=== PATIENT | female | born 1965 | race Caucasian/White ===

== ENCOUNTER 2018-07-21 11:41 | Outpatient (CLI) | payer BC ==
--- NOTE | 2018-07-21 22:23 | MMO ---
Bilateral MAMMO Bilat Screen [facility]. CLINICAL HISTORY: Patient is 53 years old and is seen for screening. The patient has no family history of breast cancer. The patient has a history of lymphoma at age 49. VIEWS: The views performed were: bilateral craniocaudal with tomosynthesis and bilateral mediolateral oblique with tomosynthesis. FILMS COMPARED: The present examination has been compared to prior imaging studies performed at [facility] on 05/10/2008, 04/22/2010, 04/21/2011 and 12/09/2012. MAMMOGRAM FINDINGS: There are scattered fibroglandular densities. There are no suspicious masses, suspicious calcifications, or new areas of architectural distortion. IMPRESSION: THERE IS NO MAMMOGRAPHIC EVIDENCE OF MALIGNANCY. A ROUTINE FOLLOW-UP MAMMOGRAM IN 1 YEAR IS RECOMMENDED. THE RESULTS OF THIS EXAM WERE SENT TO THE PATIENT. ACR BI-RADS Category 1 - Negative MAMMOGRAPHY NOTE: 1. A negative mammogram report should not delay a biopsy if a dominant of clinically suspicious mass is present. 2. Approximately 10% to 15% of breast cancers are not detected by mammography. 3. Adenosis and dense breasts may obscure an underlying neoplasm.
== END 2018-07-21 11:42 | disposition home or self-care (01) ==
LOC: BICMAMMO 11:41
PROVIDERS: ATTEND Obstetrics & Gynecology
DX: Z12.31 Encounter for screening mammogram for malignant neoplasm of breast (principal); Z85.72 Personal history of non-Hodgkin lymphomas
CPT/HCPCS: 77063; 77067

== ENCOUNTER 2019-01-25 07:39 | Day surgery (SDC) | payer BC ==
[2019-01-24 15:05] VITALS: BMI 24.7
[2019-01-25] MEDS ORDERED: Midazolam HCl 2 mg/2 ml Vial ONE (09:15)
[2019-01-25] MEDS ORDERED: Fentanyl 100 MCG/2 ML VIAL ONE (09:15)
[2019-01-25] MEDS ORDERED: PROPOFOL 40 ML ONE (09:15)
[2019-01-25] MEDS ORDERED: Bupivacaine 0.25% HCL 30 ML VIAL ONE (09:18)
[2019-01-25] MEDS ORDERED: Lidocaine 2% w/Epinephrine 1:200K 20 ML VIAL ONE (09:24)
--- NOTE | 2019-01-25 10:39 | RAD ---
PORTABLE CHEST ONE VIEW: 01/25/2019 10:05 a.m. HISTORY: Mediport placement. FINDINGS: There is a right internal jugular Port-A-Cath with the tip in the projection of the SVC. Heart size i s normal. Lungs are expanded without lobar consolidation, pneumothoraces or pleural effusions. POS: [facility]
[2019-01-25] MEDS ORDERED: HYDROcodone/Acetaminophen 5/325 mg Tablet ONE (10:44)
[2019-01-25] MEDS ORDERED: Sodium Chloride 0.9% 100 ML ONE (10:44)
[2019-01-25] MEDS ORDERED: Piperacillin/Tazobactam 3.375 GM VIAL ONE (10:44)
--- NOTE | 2019-01-25 11:17 | OP ---
DATE OF PROCEDURE: 01/25/2019 PREOPERATIVE DIAGNOSES: 1. Rheumatoid arthritis. 2. Venous insufficiency. POSTOPERATIVE DIAGNOSES: 1. Rheumatoid arthritis. 2. Venous insufficiency. PROCEDURE PERFORMED: Tunnelled central line with subcutaneous port (MediPort). ANESTHESIA: TIVA, local. ESTIMATED BLOOD LOSS: Minimal. COMPLICATIONS: None. SPECIMENS: None. FINDINGS: The tip of the catheter was at the atriocaval junction. DESCRIPTION OF PROCEDURE: The patient was taken to the operating room and laid supine on the operating room table. After sedation was obtained, bilateral neck and chest were prepped and draped in a sterile fashion. Local anesthetic was infiltrated over the right internal jugular vein. Internal jugular vein was cannulated using a 22-gauge finder needle followed by a Seldinger needle. Wire was passed into the superior vena cava under fluoro guidance and dilators. A small dawood was made at the wire entrance site. A separate 3-cm incision was made in the right upper chest. Subcutaneous pocket was made below the lower incision. Tubing for the MediPort tunnelled from the inferior to superior incision and suture sheath was placed over the wire into the superior vena cava under fluoro guidance. The dilator ring and wire were removed. The end of the catheter was sewed into the sheath. The sheath was peeled away. The tip of the catheters at the atriocaval junction, MediPort tubing cut to fit the MediPort at the lower incision, connected to the MediPort, which was sewn to the chest wall in the subcutaneous pocket using Prolene. MediPort was flushed and purnima blood without difficulties, flushed with a heparin flush. The wounds were closed using 3-0 Vicryl, 4-0 Monocryl, and Dermabond. The MediPort was left accessed for use later today. The patient was sent to Recovery in stable condition. All instrument counts, needle counts, and lap counts were correct. Job ID: [id number]
[2019-01-25] MEDS ORDERED: PROPOFOL 200 MG/20 ML VIAL ONE (14:34)
[2019-01-25] MEDS ORDERED: PHENYLEPHRINE-NS 100 MCG/ML 10 ML SYRINGE ONE (14:34)
[2019-01-25] MEDS ORDERED: Lidocaine 1% PF 5 ML VIAL ONE (14:34)
== END 2019-01-25 11:15 | disposition home or self-care (01) ==
LOC: SDC 07:39
PROVIDERS: ATTEND Surgery
PROC: 02HV33Z Insertion of Infusion Device into Superior Vena Cava, Percutaneous Approach (ICD-10-PCS; principal; 2019-01-25)
DX: C85.90 Non-Hodgkin lymphoma, unspecified, unspecified site (principal); M06.9 Rheumatoid arthritis, unspecified; I87.2 Venous insufficiency (chronic) (peripheral); F17.210 Nicotine dependence, cigarettes, uncomplicated; Z88.2 Allergy status to sulfonamides
CPT/HCPCS: 71045; 80053; 82728; C1788; J0690; J1642; J2001; J2250; J2543; J2704; J3010; J3490; S0020

== ENCOUNTER 2019-09-08 10:11 | Outpatient (CLI) | payer BC ==
--- NOTE | 2019-09-08 11:54 | CT ---
CT neck soft tissues with contrast: 09/08/2019 HISTORY: 54-year-old female with Hodgkin's lymphoma, rheumatoid arthritis, dyspnea, and neck pain. Pain in rig ht sternoclavicular joint. COMPARISON: 06/25/2015. FINDINGS: There are no enlarged cervical lymph nodes. There are small subchondral cysts (with sclerotic margins ) at the cisternal side of the right sternoclavicular joint, somewhat greater than on previous CT. There are fewer such cysts on the contralateral left side. There is mild osteophytosis of the bilater al clavicular heads. No high-grade joint space narrowing of the sternoclavicular joints. No destructive osseous lesion. 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 This chronically indents the right pleural surface. There are no high-grade degenerative changes at t hat pseudoarticulation. There is a right internal jugular implantable vascular access port. Visualized lung apices are grossl y clear. Medialization of right carotid artery anteriorly displaces the right posterior pharyngeal wall at the supraglottic hypopharynx. Otherwise, the larynx, thyroid, and trachea, are normal. The pa rapharyngeal, submandibular, parotid, carotid, retropharyngeal, cinder crew worker, visceral, and posterior cervical, spaces, are normal. No major interval change overall compared to 06/25/2015 IMPRESSION: 1.) No cervical lymphadenopathy. 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
--- NOTE | 2019-09-08 12:09 | CT ---
CT CHEST WITH IV CONTRAST CT ABDOMEN WITH IV CONTRAST CT PELVIS WITH IV COTNRAST: HISTORY: Hodgkin's lymphoma, shortness of breath, rheumatoid arthritis, and pain. The patient had chemotherap y. FINDINGS: Correlation was made with the PET CT of 09/18/2015. No mediastinal, hilar, axillary, abdominal, pelvic, or inguinal lymphadenopathy is seen. There are vascular calcifications without evidence of aneurysmal dilatation of the thoracoabdominal a consuelo. There are mild degenerative changes at L5-S1 level. No osteolytic or osteoblastic lesions are seen. No pleural or pericardial effusions are seen. No pneumothoraces, focal areas of consolidation, lung nodules, or masses are identified. The liver, spleen, pancreas, adrenal glands, and kidneys are normal. No calcified gallstones are see n. Uterus is present with an IUD in place. No free air or free fluid is seen in the abdomen or pelv is. IMPRESSION: No significant abnormalities are identified. POS: [facility]
== END 2019-09-08 10:12 | disposition home or self-care (01) ==
LOC: BICCT 10:11
DX: C81.90 Hodgkin lymphoma, unspecified, unspecified site (principal); R06.02 Shortness of breath; M25.511 Pain in right shoulder; M05.731 Rheumatoid arthritis with rheumatoid factor of right wrist without organ or systems involvement; M19.012 Primary osteoarthritis, left shoulder; M19.011 Primary osteoarthritis, right shoulder; Q76.6 Other congenital malformations of ribs
CPT/HCPCS: 70491; 71260; 74177

== ENCOUNTER 2020-12-05 14:21 | Outpatient (CLI) | payer BC | END 2020-12-05 14:22 | disposition home or self-care (01) | LOC: BICMAMMO 14:21 | PROVIDERS: ATTEND Internal Medicine | DX: Z12.31 Encounter for screening mammogram for malignant neoplasm of breast (principal); Z85.72 Personal history of non-Hodgkin lymphomas | CPT/HCPCS: 77063; 77067 ==

== ENCOUNTER 2021-05-30 14:19 | Outpatient (CLI) | payer BC | END 2021-05-30 14:20 | disposition home or self-care (01) | LOC: BICCT 14:19 | PROVIDERS: ATTEND Internal Medicine | DX: R59.0 Localized enlarged lymph nodes (principal) | CPT/HCPCS: 70491 ==

== ENCOUNTER 2021-07-03 11:38 | Outpatient (CLI) | payer BC | END 2021-07-03 11:39 | disposition home or self-care (01) | LOC: BICRAD 11:38 | PROVIDERS: ATTEND Internal Medicine | DX: R06.00 Dyspnea, unspecified (principal) | CPT/HCPCS: 71046; U0003; U0005 ==

== ENCOUNTER 2021-07-23 11:34 | Outpatient (CLI) | payer BC | END 2021-07-23 11:35 | disposition home or self-care (01) | LOC: BICRAD 11:34 | PROVIDERS: ATTEND Internal Medicine | DX: R06.02 Shortness of breath (principal); R05.9 Cough, unspecified | CPT/HCPCS: 71046 ==

== ENCOUNTER 2021-07-23 14:06 | Emergency (ER) | payer BC ==
[~2021-07-23 14:06] MED LIST: Iopamidol-370 76% 500 ML 1 ML ONE
[2021-07-23 15:19] LABS: Hemoglobin 9.7 g/dL (12.0-16.0); Mean Corpuscular HGB CONC 30.5 g/dL (32.0-36.0); Mean Corpuscular Hemoglobin 24.5 pg (27.0-31.0); Mean Corpuscular Volume 80.5 fL (78.0-98.0); Mean Platelet Volume 8.1 fL (7.4-10.4); Platelet Count 276 thou/uL (130-400); RBC Distribution Width 14.7 % (11.5-14.5); Red Blood Cell (RBC) Count 3.93 mill/uL (4.20-5.40); White Blood Cell (WBC) Count 5.1 thou/uL (4.8-10.8)
[2021-07-23 15:36] LABS: Band 13 % (5-11); Hypochromia SLIGHT = 6-15 cells (100X) (0-5/hpf); Lymphocytes 20 % (21-51); MDiff Complete? YES; Monocytes 15 % (0-10); Neutrophil 51 % (42-75); Ovalocytes SLIGHT = 2-5 cells (100X) (0-1/hpf); Platelet Morphology Comment Appears Adequate; Polychromasia SLIGHT = 2-3 cells (100X) (0-2/hpf)
[2021-07-23 15:39] LABS: ALT (SGPT) 12 U/L (8-55); AST (SGOT) 18 U/L (5-34); Albumin 4.3 g/dL (3.5-5.0); Alkaline Phosphatase 67 U/L (40-110); Anion Gap 13 mmol/L (10-20); BUN (Urea Nitrogen) 8 mg/dL (9.8-20.1); Bilirubin, Total 0.4 mg/dL (0.2-1.2); Calc. Creatinine Clearance 0 mL/min (70-130); Calcium 8.9 mg/dL (7.8-10.44); Carbon Dioxide 27 mmol/L (22-29); Chloride 106 mmol/L (98-107); Globulin 2.7 g/dL (2.4-3.5); Glucose 91 mg/dL (70-105); Potassium 3.9 mmol/L (3.5-5.1); Sodium 142 mmol/L (136-145)
[2021-07-23 18:12] LABS: Bilirubin Negative (Negative); Blood, Urine Negative (Negative); Clarity Clear (Clear); Glucose, Urine (Dipstick) Normal (Negative); Ketone, Urine Negative (Negative); Leukocyte Negative Leu/uL (Negative); Nitrite Negative (Negative); Protein, Urine (Dipstick) Negative (Neg-Trace); Urobilinogen Normal mg/dL (Less than 2); pH, Urine 6.5 (5.0-9.0)
[2021-07-23 18:14] LABS: Specific Gravity, Urine 1.051 (1.002-1.036)
== END 2021-07-23 18:37 | disposition home or self-care (01) ==
LOC: ERS 14:06
DX: J18.9 Pneumonia, unspecified organism (principal); C85.90 Non-Hodgkin lymphoma, unspecified, unspecified site; M06.9 Rheumatoid arthritis, unspecified
CPT/HCPCS: 36415; 71275; 83880; 84484; 93005; Q9967

== ENCOUNTER 2021-08-20 14:26 | Outpatient (CLI) | payer BC | END 2021-08-20 14:27 | disposition home or self-care (01) | LOC: BICRAD 14:26 | PROVIDERS: ATTEND Internal Medicine | DX: J18.9 Pneumonia, unspecified organism (principal) | CPT/HCPCS: 71046 ==

== ENCOUNTER 2022-08-06 14:43 | Outpatient (CLI) | payer BC | END 2022-08-06 14:44 | disposition home or self-care (01) | LOC: BICMAMMO 14:43 | PROVIDERS: ATTEND Internal Medicine | DX: Z12.31 Encounter for screening mammogram for malignant neoplasm of breast (principal) | CPT/HCPCS: 77063; 77067 ==

== ENCOUNTER 2022-09-23 13:27 | Outpatient (CLI) | payer BC | END 2022-09-23 13:28 | disposition home or self-care (01) | LOC: RAD 13:27 | PROVIDERS: ATTEND Internal Medicine | DX: R05.9 Cough, unspecified (principal) | CPT/HCPCS: 71046 ==

== ENCOUNTER 2022-10-06 13:42 | Outpatient (CLI) | payer BC | END 2022-10-06 13:43 | disposition home or self-care (01) | LOC: RAD 13:42 | PROVIDERS: ATTEND Internal Medicine Critical Care Medicine | DX: R06.00 Dyspnea, unspecified (principal); J18.9 Pneumonia, unspecified organism | CPT/HCPCS: 71046 ==

== ENCOUNTER 2022-11-03 14:04 | Outpatient (CLI) | payer BC | END 2022-11-03 14:05 | disposition home or self-care (01) | LOC: RAD 14:04 | PROVIDERS: ATTEND Internal Medicine Critical Care Medicine | DX: R06.00 Dyspnea, unspecified (principal) | CPT/HCPCS: 71046 ==

== ENCOUNTER 2023-02-05 13:54 | Outpatient (CLI) | payer BC | END 2023-02-05 13:55 | disposition home or self-care (01) | LOC: BICRAD 13:54 | PROVIDERS: ATTEND Internal Medicine Rheumatology | DX: M05.9 Rheumatoid arthritis with rheumatoid factor, unspecified (principal); Z79.899 Other long term (current) drug therapy; M19.042 Primary osteoarthritis, left hand; M19.041 Primary osteoarthritis, right hand; M17.0 Bilateral primary osteoarthritis of knee | CPT/HCPCS: 73565 ==

== ENCOUNTER 2023-04-07 15:22 | Outpatient (CLI) | payer BC | END 2023-04-07 15:23 | disposition home or self-care (01) | LOC: BICRAD 15:22 | PROVIDERS: ATTEND Internal Medicine | DX: M79.644 Pain in right finger(s) (principal); S62.632A Displaced fracture of distal phalanx of right middle finger, initial encounter for closed fracture ==

== ENCOUNTER 2024-10-07 14:59 | Outpatient (CLI) | payer BC ==
[~2024-10-07 14:59] MED LIST changes: +Iopamidol 370 76% 100 ML VIAL ONE; -Iopamidol-370 76% 500 ML 1 ML ONE
== END 2024-10-07 15:00 | disposition home or self-care (01) ==
LOC: CT 14:59
PROVIDERS: ATTEND Internal Medicine
DX: R59.0 Localized enlarged lymph nodes (principal); Z85.72 Personal history of non-Hodgkin lymphomas
CPT/HCPCS: 70491; Q9967

== ENCOUNTER 2024-10-25 11:00 | Outpatient (CLI) | payer BC | END 2024-10-25 11:01 | disposition home or self-care (01) | LOC: PET 11:00 | PROVIDERS: ATTEND Internal Medicine Hematology & Oncology | DX: C82.61 Cutaneous follicle center lymphoma, lymph nodes of head, face, and neck (principal); M05.69 Rheumatoid arthritis of multiple sites with involvement of other organs and systems; D50.8 Other iron deficiency anemias; D63.8 Anemia in other chronic diseases classified elsewhere; R59.9 Enlarged lymph nodes, unspecified | CPT/HCPCS: 78816; A9552 ==

== ENCOUNTER 2024-11-29 14:35 | Outpatient (CLI) | payer BC | END 2024-11-29 14:36 | disposition home or self-care (01) | LOC: BICMAMMO 14:35 | PROVIDERS: ATTEND Internal Medicine | DX: Z12.31 Encounter for screening mammogram for malignant neoplasm of breast (principal); Z85.72 Personal history of non-Hodgkin lymphomas | CPT/HCPCS: 77063; 77067 ==

== ENCOUNTER 2025-01-10 14:56 | Outpatient (CLI) | payer BC | END 2025-01-10 14:57 | disposition home or self-care (01) | LOC: BICMAMMO 14:56 | PROVIDERS: ATTEND Obstetrics & Gynecology | DX: Z13.820 Encounter for screening for osteoporosis (principal); Z78.0 Asymptomatic menopausal state; M85.89 Other specified disorders of bone density and structure, multiple sites | CPT/HCPCS: 77080 ==

== ENCOUNTER 2025-01-26 13:14 | Outpatient (CLI) | payer BC | END 2025-01-26 13:15 | disposition home or self-care (01) | LOC: BICRAD 13:14 | PROVIDERS: ATTEND Nurse Practitioner Family | DX: R05.9 Cough, unspecified (principal) | CPT/HCPCS: 71046 ==

== ENCOUNTER 2025-02-01 15:52 | Inpatient (IN) | payer BC ==
[~2025-02-01 15:52] MED LIST changes: -Iopamidol 370 76% 100 ML VIAL ONE; +Iopamidol-370 76% 500 ML MDV (1 ML CHARGE) ONE
[2025-02-01 17:17] LABS: #Basophils 0.06 10x3/uL (0.0-0.2); #Eosinophils 0.19 10x3/uL (0.0-0.7); #Monocytes 2.11 10x3/uL (0.11-0.59); #Neutrophils 10.86 10x3/uL (1.40-6.50); %Basophils 0.3 % (0.0-1.0); %Eosinophils 1.1 % (0.0-10.0); %Lymphocytes 23.5 % (21.0-51.0); %Monocytes 12.1 % (0.0-10.0); %Neutrophils 62.1 % (42.0-75.0); Hematocrit 32.7 % (36.0-47.0); Hemoglobin 10.2 g/dL (12.0-16.0); Mean Corpuscular Hemoglobin 25.6 pg (27.0-31.0); Mean Corpuscular Volume 82.2 fL (78.0-98.0); Platelet Count 364 10x3/uL (130-400); Red Blood Cell (RBC) Count 3.98 mill/uL (4.20-5.40); White Blood Cell (WBC) Count 17.48 10x3/uL (4.8-10.8)
[2025-02-01 17:36] LABS: ALT (SGPT) 20 U/L (Less than 34); AST (SGOT) 15 U/L (11-34); Albumin 3.8 g/dL (3.1-4.5); Alkaline Phosphatase 97 U/L (40-110); Anion Gap 12 mmol/L (10-20); BUN (Urea Nitrogen) 14 mg/dL (9.8-20.1); Bilirubin, Total 0.2 mg/dL (0.3-1.2); Calc. Creatinine Clearance 0 mL/min (70-130); Calcium 9.2 mg/dL (7.8-10.44); Carbon Dioxide 27 mmol/L (22-29); Chloride 106 mmol/L (98-107); Globulin 2.2 g/dL (2.4-3.5); Glucose 102 mg/dL (70-105); Magnesium 2.1 mg/dL (1.6-2.6); Potassium 4.3 mmol/L (3.5-5.1); Sodium 141 mmol/L (136-145)
[2025-02-01] MEDS ORDERED: cefTRIAXone (ROCEPHIN) 2 GM VIAL ONE (20:15)
[2025-02-01] MEDS ORDERED: Ondansetron PF 4 MG/2 ML Vial IVP PRN (20:51)
[2025-02-01] MEDS ORDERED: Acetaminophen 325 MG TAB PO PRN (20:51)
[2025-02-01] MEDS ORDERED: Azithromycin 500 MG VIAL ONE (21:07)
[2025-02-01 21:30] VITALS: BMI 22.9
[2025-02-01] MEDS ORDERED: LevoFLOXacin 750 mg/D5W 150 ml Premix Bag ONE (23:20)
[2025-02-01] MEDS: LevoFLOXacin 750 mg/D5W 750 MG in Premix 1 BAG IVPB SCH (23:22)
[2025-02-02] MEDS: Benzonatate 100 MG CAP PO PRN (03:43)
[2025-02-02 06:01] LABS: #Basophils 0.05 10x3/uL (0.0-0.2); #Eosinophils 0.05 10x3/uL (0.0-0.7); #Monocytes 0.40 10x3/uL (0.11-0.59); #Neutrophils 11.27 10x3/uL (1.40-6.50); %Basophils 0.4 % (0.0-1.0); %Eosinophils 0.4 % (0.0-10.0); %Lymphocytes 10.9 % (21.0-51.0); %Monocytes 3.0 % (0.0-10.0); %Neutrophils 83.7 % (42.0-75.0); Hematocrit 33.2 % (36.0-47.0); Hemoglobin 10.4 g/dL (12.0-16.0); Mean Corpuscular Hemoglobin 25.7 pg (27.0-31.0); Mean Corpuscular Volume 82.0 fL (78.0-98.0); Platelet Count 309 10x3/uL (130-400); Red Blood Cell (RBC) Count 4.05 mill/uL (4.20-5.40); White Blood Cell (WBC) Count 13.45 10x3/uL (4.8-10.8)
[2025-02-02 06:15] LABS: Anion Gap 7 mmol/L (10-20); BUN (Urea Nitrogen) 12 mg/dL (9.8-20.1); Calc. Creatinine Clearance 89 mL/min (70-130); Calcium 8.9 mg/dL (7.8-10.44); Carbon Dioxide 22 mmol/L (22-29); Chloride 109 mmol/L (98-107); Glucose 116 mg/dL (70-105); Potassium 4.3 mmol/L (3.5-5.1); Sodium 134 mmol/L (136-145)
[2025-02-02 06:51] LABS: Legionella Urinary Ag Negative (Negative); Strep pneumo Urine Ag NEGATIVE (NEGATIVE)
[2025-02-02] MEDS: HYDROcodone/Chlorphen Polis 5 ML UDCUP PO PRN (17:35)
[2025-02-02] MEDS: Melatonin 3 MG TAB PO SCH (21:07)
[2025-02-03 06:01] LABS: #Basophils 0.04 10x3/uL (0.0-0.2); #Eosinophils Less than 0.03 10x3/uL (0.0-0.7); #Monocytes 2.03 10x3/uL (0.11-0.59); #Neutrophils 14.85 10x3/uL (1.40-6.50); %Basophils 0.2 % (0.0-1.0); %Eosinophils 0.0 % (0.0-10.0); %Lymphocytes 15.4 % (21.0-51.0); %Monocytes 9.9 % (0.0-10.0); %Neutrophils 72.3 % (42.0-75.0); Hematocrit 31.4 % (36.0-47.0); Hemoglobin 9.7 g/dL (12.0-16.0); Mean Corpuscular Hemoglobin 25.7 pg (27.0-31.0); Mean Corpuscular Volume 83.1 fL (78.0-98.0); Platelet Count 338 10x3/uL (130-400); Red Blood Cell (RBC) Count 3.78 mill/uL (4.20-5.40); White Blood Cell (WBC) Count 20.56 10x3/uL (4.8-10.8)
[2025-02-03 06:22] LABS: Anion Gap 10 mmol/L (10-20); BUN (Urea Nitrogen) 8 mg/dL (9.8-20.1); Calc. Creatinine Clearance 92 mL/min (70-130); Calcium 9.2 mg/dL (7.8-10.44); Carbon Dioxide 25 mmol/L (22-29); Chloride 110 mmol/L (98-107); Glucose 102 mg/dL (70-105); Potassium 3.7 mmol/L (3.5-5.1); Sodium 141 mmol/L (136-145)
[2025-02-03 07:43] LABS: Reference Lab Name LABCORP
[2025-02-03] MEDS: predniSONE 20 MG TAB PO SCH (08:05)
[2025-02-03] MEDS: Enoxaparin 40 MG (0.4 mL) SYRINGE SC SCH (08:05)
[2025-02-03] MEDS: Pantoprazole 40 MG DR.TAB PO SCH (08:05)
[2025-02-04 05:33] LABS: #Basophils 0.05 10x3/uL (0.0-0.2); #Eosinophils 0.12 10x3/uL (0.0-0.7); #Monocytes 1.39 10x3/uL (0.11-0.59); #Neutrophils 7.81 10x3/uL (1.40-6.50); %Basophils 0.4 % (0.0-1.0); %Eosinophils 0.8 % (0.0-10.0); %Lymphocytes 31.3 % (21.0-51.0); %Monocytes 9.8 % (0.0-10.0); %Neutrophils 55.0 % (42.0-75.0); Hematocrit 31.8 % (36.0-47.0); Hemoglobin 9.5 g/dL (12.0-16.0); Mean Corpuscular Hemoglobin 25.2 pg (27.0-31.0); Mean Corpuscular Volume 84.4 fL (78.0-98.0); Platelet Count 339 10x3/uL (130-400); Red Blood Cell (RBC) Count 3.77 mill/uL (4.20-5.40); White Blood Cell (WBC) Count 14.20 10x3/uL (4.8-10.8)
[2025-02-04 06:20] LABS: Anion Gap 14 mmol/L (10-20); BUN (Urea Nitrogen) 10 mg/dL (9.8-20.1); Calc. Creatinine Clearance 74 mL/min (70-130); Calcium 9.1 mg/dL (7.8-10.44); Carbon Dioxide 25 mmol/L (22-29); Chloride 108 mmol/L (98-107); Glucose 87 mg/dL (70-105); Potassium 4.5 mmol/L (3.5-5.1); Sodium 142 mmol/L (136-145)
[2025-02-04 14:49] VITALS: BP 129/60; TEMP 98.6
[2025-02-06 11:35] LABS: dsDNA IgG Antibody Less than 0.6 IU/mL (<10 Negative)
[2025-02-06 11:48] LABS: ANA Symphony (Qualitative) Negative (Negative); ANA Symphony (Quantitative) Less than 0.1 Ratio (< 0.7 Negative); EliA RAS New Method **** NEW METHOD ****; Rheumatoid Factor IgM Antibody Less than 0.6 IU/mL (<3.5 Negative)
== END 2025-02-04 14:41 | disposition home or self-care (01) | DRG 193 ==
LOC: ERS 15:52 → ERHOLD 20:52 → SURG B 02-02 00:59 → OBSVTOIN 02-02 08:28
PROVIDERS: ADMIT Internal Medicine; ATTEND Internal Medicine
DX: J18.9 Pneumonia, unspecified organism (principal); J96.01 Acute respiratory failure with hypoxia; C81.9A Hodgkin lymphoma, unspecified, in remission; Z88.2 Allergy status to sulfonamides; Z88.1 Allergy status to other antibiotic agents; J32.9 Chronic sinusitis, unspecified; Z79.899 Other long term (current) drug therapy
CPT/HCPCS: 36415; 71275; 80048; 80053; 83520; 83605; 83615; 83735; 83880; 84484; 85025; 86037; 86038; 86225; 87449; 87899; 94640; 96365; 96367; 96375; J0456; J0696; J1650; J1956; J2543; J2919; J7512; Q9967